=== PATIENT | male | born 1990 | race Caucasian/White ===

== ENCOUNTER → 2020-12-28 11:03 | Outpatient (BNVA) | payer OTHER, SELFPAY | PROVIDERS: Visit Provider Nurse Practitioner Family | DX: Z20.822 Contact with and (suspected) exposure to COVID-19 (principal) | CPT/HCPCS: 87635 ==

== ENCOUNTER 2025-03-15 20:19 | Emergency (ER) | payer SELFPAY ==
[2025-03-15 20:33] VITALS: BP 171/100; PULSE 115; RESP 16; TEMP 36.9; O2SAT 99; BMI 19.8
[2025-03-15 22:47] LABS: Hematocrit 47.2 % (37-53); Hemoglobin 16.20 g/dL (11.27-16.99); Mean Corpuscular HGB Conc 34.3 g/dL (30-55); Mean Corpuscular Hemoglobin 30.4 pg (27-33); Mean Corpuscular Volume 88.6 fl (82-101); Nucleated Red Blood Cells % 0 %; Platelet Count 361 10^3/cmm (157-399); Red Blood Count 5.33 10^6/uL (3.85-5.65); White Blood Count 9.21 10^3/uL (3.29-11.43)
[2025-03-15 23:07] LABS: Alanine Aminotransferase 9 U/L (0-41); Albumin Level 5.1 g/dL (3.5-5.2); Alkaline Phosphatase 91 U/L (40-130); Anion Gap 17.7 (5-19); Aspartate Amino Transferase 15 U/L (0-40); Blood Urea Nitrogen 12 mg/dL (6-20); Calcium 9.4 mg/dL (8.5-10.5); Carbon Dioxide 28 mmol/L (22-29); Chloride 100 mmol/L (98-107); Creatinine Clr Calc Pharmacy 98.6892; Globulin 3.0 g/dL (1.3-4.6); Glucose 89 mg/dL (65-115); Lipase 19 U/L (13-60); Magnesium 2.3 mg/dL (1.7-2.3); Osmolality Calculated 293 mOsm/kg (285-295); Potassium 3.7 mmol/L (3.5-5.1); Sodium 142 mmol/L (136-145); Total Protein 8.1 g/dL (6.6-8.7)
[2025-03-16 00:15] VITALS: BP 148/89; PULSE 97; RESP 16; O2SAT 100
--- NOTE | 2025-03-16 00:52 | W.ED.GIBLEED ---
HPI - GI Bleed General: Chief complaint: GI Bleed Stated complaint: ABD PAIN Time Seen by Provider: 03/15/25 20:27 History of Present Illness: Patient is a 34-year-old male with no significant past medical history who presents with a several-week history of bright red blood per rectum, noted with most bowel movements .The bleeding has been gradually worsening, with a particularly large amount noted today, prompting his visit. He denies pain with defecation but reports increased straining and constipation, as well as bloating and a sensation of gas, but no true abdominal pain. He denies any history of gastrointestinal disease, abdominal surgery, heavy NSAID use, alcohol abuse, liver disease, ulcers, vomiting, or use of blood thinners. He is still able to eat normally. He denies lightheadedness, chest pain, dyspnea, or recent illness, though he was noted to have tachycardia. He reports mild nervousness but no significant anxiety. Related Data Previous Rx's ?Medication ?Instructions ?Recorded mupirocin 2 % topical ointment 1 applic topical TID 10 days #22 09/16/22 grams lidocaine 3 %-hydrocortisone 2.5 % 1 applic MN DAILY PRN anal/rectal 03/16/25 (7 gram) rectal gel pain #7 grams Allergies Allergy/AdvReac Type Severity Reaction Status Date / Time No Known Allergies Allergy Verified 03/15/25 20:39 Review of Systems General: Reports: 10 or more systems reviewed and unremarkable except in HPI and below GI: Reports: heartburn and hematochezia Physical Exam Narrative: EXAM NARRATIVE: Patient overall well-appearing, tachycardic but normotensive, afebrile, nontoxic, no acute distress. Appears with slightly delayed cap refill, dry mucous membranes. Patient with mild distention of abdomen but soft, no reproducible tenderness throughout, bowel sounds intact, no overlying skin changes, no CVA tenderness. Rectal exam with small external hemorrhoid, no thrombosis. No blood surrounding rectal vault, no fissures. Course Vital Signs: Vital signs: Vital Signs Temperature 98.4 F 03/15/25 20:33 Pulse Rate 99 03/16/25 01:00 Respiratory Rate 16 03/16/25 01:00 Blood Pressure 165/97 03/16/25 01:00 Pulse Oximetry 99 03/16/25 01:00 Oxygen Delivery Me thod Room Air 03/16/25 00:15 MDM - GI Bleed Medical Decision Making Patient overall well-appearing is tachycardic on arrival, has been having a few weeks now of bright red blood per rectum, no actual pain with defecation, no history of cirrhosis, no heavy alcohol or NSAID usage, no previous EGD or colonoscopy, no early family history of GI issues, no known coagulopathy. No abdominal pain, has been tolerating a normal diet. Does endorse some constipation and straining when going to the bathroom. On rectal exam does have a small external ulcer, nothing thrombosed, no obvious blood surrounding the rectal vault, no fissures identified. Because of being tachycardic and appearing dehydrated, routine labs obtained to evaluate for electrolyte issues, degree of anemia and to provide fluids, denying needing any medications at this time. - Laboratory studies overall reassuring, no evidence of anemia, bone marrow suppression, normal electrolytes, no AYANA, no leukocytosis and no concerns for acute pathology with this. Heart rate i improved markedly after a liter of fluids and he was then able to take in his own fluids which further improved it, was reassured with the relatively benign evaluation and so he was just instructed to start taking MiraLAX and other stool softeners as needed over the next few weeks to promote regular bowel movements and prevent straining to help with his hemorrhoids most likely leading to this bleeding. He does not have pain now but if he does develop it, advised him to start taking Preparation H and then prescribed mix lidocaine/steroid ointment if that does not help and referral to colorectal if it is persistent. Patient was then deemed stable and able to be discharged home with strict return precautions and the above prescriptions. Differential Diagnosis Likely hemorrhoids; Unlikely infectious diarrhea, esophageal varices, gastritis, Denise-Hatfield syndrome or anal fissure Lab Data 03/15/25 22:40 03/15/25 22:40 Laboratory Results WBC 9.21 10^3/uL (3.29-11.43) 03/15/25 22:40 RBC 5.33 10^6/uL (3.85-5.65) 03/15/25 22:40 Hgb 16.20 g/dL (11.27-16.99) 03/15/25 22:40 Hct 47.2 % (37-53) 03/15/25 22:40 MCV 88.6 fl (82-101) 03/15/25 22:40 MCH 30.4 pg (27-33) 03/15/25 22:40 MCHC 34.3 g/dL (30-55) 03/15/25 22:40 RDW 11.9 % (12.1-15.1) L 03/15/25 22:40 Plt Count 361 10^3/cmm (157-399) 03/15/25 22:40 MPV 9.2 fL (7.4-10.4) 03/15/25 22:40 Neut % (Auto) 71.4 % 03/15/25 22:40 Lymph % (Auto) 18.2 % 03/15/25 22:40 [place] % (Auto) 9.0 % 03/15/25 22:40 Eos % (Auto) 0.8 % 03/15/25 22:40 Baso % (Auto) 0.5 % 03/15/25 22:40 Neut # (Auto) 6.57 10^3/uL (1.8-7.7) 03/15/25 22:40 Lymph # (Auto) 1.7 10^3/uL (0.8-4.8) 03/15/25 22:40 [place] # (Auto) 0.8 10^3/uL (0.2-0.9) 03/15/25 22:40 Eos # (Auto) 0.1 10^3/uL (0.0-0.8) 03/15/25 22:40 Baso # (Auto) 0.1 10^3/uL (0.0-0.1) 03/15/25 22:40 Nucleated RBC % (auto) 0 % 03/15/25 22:40 Nucleated RBCs # 0.0 /100WBC 03/15/25 22:40 Sodium 142 mmol/L (136-145) 03/15/25 22:40 Potassium 3.7 mmol/L (3.5-5.1) 03/15/25 22:40 Chloride 100 mmol/L (98-107) 03/15/25 22:40 Carbon Dioxide 28 mmol/L (22-29) 03/15/25 22:40 Anion Gap 17.7 (5-19) 03/15/25 22:40 BUN 12 mg/dL (6-20) 03/15/25 22:40 Creatinine 1.1 mg/dL (0.7-1.2) 03/15/25 22:40 GFR Calculation 75.7 mL/min (90-130) L 03/15/25 22:40 Glucose 89 mg/dL (65-115) 03/15/25 22:40 Calculated Osmolality 293 mOsm/kg (285-295) 03/15/25 22:40 Calcium 9.4 mg/dL (8.5-10.5) 03/15/25 22:40 Phosphorus 3.5 mg/dL (2.5-4.5) 03/15/25 22:40 Magnesium 2.3 mg/dL (1.7-2.3) 03/15/25 22:40 Total Bilirubin 0.5 mg/dL (0.15-1.2) 03/15/25 22:40 AST 15 U/L (0-40) 03/15/25 22:40 ALT 9 U/L (0-41) 03/15/25 22:40 Alkaline Phosphatase 91 U/L (40-130) 03/15/25 22:40 C-Reactive Protein 3.0 mg/L (0.0-4.9) 03/15/25 22:40 Total Protein 8.1 g/dL (6.6-8.7) 03/15/25 22:40 Albumin 5.1 g/dL (3.5-5.2) 03/15/25 22:40 Globulin 3.0 g/dL (1.3-4.6) 03/15/25 22:40 Lipase 19 U/L (13-60) 03/15/25 22:40 No radiology studies performed this visit Discharge Plan Discharge Patient Disposition: Home Clinical Impression: Dehydration Hemorrhoids Qualifiers: Hemorrhoid type: first degree Qualified Code(s): K64.0 - First degree hemorrhoids Condition: Stable Prescriptions: New lidocaine HCl-hydrocortison ac 3 %-2.5 % (7 gram) gel 1 applic MN DAILY PRN (Reason: anal/rectal pain) Qty: 7 0RF No Action mupirocin 2 % ointment 1 applic topical TID 10 Days Qty: 22 0RF Discharge Orders: Discharge ED (Routine); Ordered 03/16/25 Ordered By: Garth Gonzalez Referrals: [facility] Colorectal Surgery [Outside] Referral Note: For further management of your hemorrhoids if the bleeding or pain worsens Discharge Diet: Usual diet Discharge Activity: Resume usual activity Patient Instructions: Hemorrhoids (ED), Opioid Safety, Pain Management, Patient Portal & Rosi Instructions Activity Restrictions/Additional Instructions: You were seen for rectal bleeding, you were evaluated with labs which were reassuring for no significant blood loss or other emergent conditions today. On exam you had an external hemorrhoid probably caused by constipation, because you are not currently having pain the most important thing is to try and decrease their size over time. For this, avoid straining and for this use a scoop of MiraLAX once a day for the next few weeks to promote regular bowel movements, in addition to staying hydrated is the most important thing. If you start to develop pain, use Preparation H which is [id number] at any drugstore to clean rectal area. If you still have pain beyond this, use the prescribed lidocaine hydrocortisone cream for additional pain relief. If you have continued bleeding despite these measures or if the pain becomes significant, colorectal surgery clinic as listed above for further evaluation of your hemorrhoids and can discuss procedures in the clinic to definitively manage them. Return to the ED with severe worsening of the bleeding, severe abdominal or rectal pain, fevers, inability to eat or drink, any other emergent concerns. Print Language: Liberian Coding Level of Care Code ED Dye Tub Operator for Jane Soliman
[2025-03-16 01:00] VITALS: BP 165/97; PULSE 99; RESP 16; O2SAT 99
== END 2025-03-16 01:00 | disposition home or self-care (01) ==
PROVIDERS: Emergency Provider Student in an Organized Health Care Education/Training Program
DX: E86.0 Dehydration (principal); K64.0 First degree hemorrhoids
CPT/HCPCS: 36415; 80053; 83690; 83735; 84100; 85025; 86140; 96360; 96361; 99284; J7030